=== PATIENT | male | born 1960 | race Hispanic/Latino ===

== ENCOUNTER 2019-09-18 09:33 | Outpatient (CLI) | payer OTHER ==
--- NOTE | 2019-09-18 11:49 | RAD ---
CERVICAL SPINE 2 VIEWS: HISTORY: Cervical radiculopathy. History of recent surgery. COMPARISON: There are no comparison studies. FINDINGS: Evidence of anterior fusion procedure. Anterior plate and screws transfix C5, C6, and C7. There are interbody implants at C5-6 and C6-7. The anterior plate does not adhere to the anterior cortex of C6 or C7 vertebrae. The interbody impla nts have somewhat of an anterior position extending to the anterior disk margin at both these levels. Posterior alignment is preserved. 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 IMPRESSION: Degenerative and postoperative changes are noted as described. POS: AH
== END 2019-09-18 09:34 | disposition home or self-care (01) ==
LOC: TBSIIMAG 09:33
PROVIDERS: ATTEND Neurological Surgery
DX: M47.22 Other spondylosis with radiculopathy, cervical region (principal); Z98.1 Arthrodesis status
CPT/HCPCS: 72040